=== PATIENT | male | born 1995 ===

== ENCOUNTER 2018-03-16 17:13 | Emergency (ER) | payer SELFPAY ==
[~2018-03-16] VITALS: Ht 170.2 cm; Wt 80.0 kg
[2018-03-16 17:20] VITALS: BP 119/77; PULSE 73; RESP 16; TEMP 98.5; O2SAT 98
[2018-03-16] MEDS ORDERED: KETOROLAC TROMETHAMINE 60 MG/2 ML (IM) VIAL IM ONE (18:30)
[2018-03-16] MEDS ORDERED: ORPHENADRINE INJ 60 MG/2 ML AMP IM ONE (18:30)
[2018-03-16] MEDS ORDERED: IBUP1TAB7 PO (18:37)
[2018-03-16] MEDS ORDERED: CYCL10TA PO (18:37)
--- NOTE | 2018-03-16 18:37 | PD ---
HPI Chief Complaint: Pain: Acute or Chronic Time Seen by Provider: 18:02 Travel History International Travel<30 days: No Contact w/Intl Traveler<30days: No Traveled to known affect area: No History of Present Illness HPI 22-year-old male presents to emergency department with 2 complaints. His first complaint is waking up with neck pain and back pain this morning. Denies injuries. 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 Denies encopresis, incontinence, saddle anesthesias. Denies IV drug use or cancer. Denies fever, vomiting. His second complaint is a sore throat that he woke up with this morning. Says it hurts to swallow. Denies lump in throat, difficulty swallowing, unusual drooling. Denies nasal congestion, cough, ear pain. Again denies fever and vomiting. Has been taking ibuprofen for symptom management with some relief. Rates pain 9/10. Neck pain and back pain is aggravated when he turns his neck to the left and right. Throat pain is aggravated with swallowing. Ibuprofen provides some relief. No primary care provider. No known allergies. History of asthma and glaucoma. Has no other medical complaints. No other modifying factors or associated signs and symptoms. PFSH Past Medical History Asthma: Yes Glaucoma: Yes Tetanus Vaccination: Unknown Influenza Vaccination: No Past Surgical History Surgical History: No Previous Surgery Social History Alcohol Use: Yes (ONCE A WEEK SOCIALLY) Tobacco Use: No Substance Use: No Allergies-Medications (Allergen,Severity, Reaction): Coded Allergies: No Known Allergies (Unverified , 03/16/18) Reported Meds & Prescriptions Reported Meds & Active Scripts Active Ibuprofen 800 Mg Tab 800 Mg PO Q6HR PRN Flexeril (Cyclobenzaprine HCl) 10 Mg Tab 10 Mg PO TID PRN Review of Systems Except as stated in HPI: all other systems reviewed are Neg Physical Exam Narrative GENERAL: Well-nourished, well-developed male patient, in no acute distress; afebrile, nontoxic-appearing SKIN: Warm and dry. No rash. HEAD: Atraumatic. Normocephalic. EYES: Pupils equal and round. No scleral icterus. No injection or drainage. ENT: Mucosa pink and moist. No erythema or exudates. No uvular edema. No uvular , palatal, or tonsillar deviation. Airway patent. EARS: Bilateral pinnae and external canals appear within normal limits. Bilateral tympanic membranes without erythema, dullness or perforation. NECK: No midline tenderness on palpation of the cervical spine. Active rotation greater than 45 to the left and right. Reproducible tenderness to bilateral musculature of the neck. Trachea midline. No lymphadenopathy. CARDIOVASCULAR: Regular rate RESPIRATORY: No accessory muscle use. GASTROINTESTINAL: Flat. BACK: No midline tenderness to palpation of the thoracic spine. Reproducible tenderness to bilateral trapezius musculature of the upper back. MUSCULOSKELETAL: No obvious deformities. No clubbing. No cyanosis. No edema. NEUROLOGICAL: Awake and alert. Oriented 3. No obvious cranial nerve deficits. Motor grossly within normal limits. Normal speech. Moves all extremities. 5/5 strength to all extremities. PSYCHIATRIC: Appropriate mood and affect; insight and judgment normal. Data Data Last Documented VS Vital Signs Date Time Temp Pulse Resp B/P (MAP) Pulse Ox O2 Delivery O2 Flow Rate FiO2 03/16/18 17:20 98.5 73 16 119/77 (91) 98 Orders Orders Ketorolac Inj (Toradol Inj) (03/16/18 18:30) Orphenadrine Inj (Norflex Inj) (03/16/18 18:30) Group A Rapid Strep Screen (03/16/18 18:19) Strep Culture (Group A) (03/16/18 18:30) MDM Medical Decision Making Medical Screen Exam Complete: Yes Emergency Medical Condition: Yes Medical Record Reviewed: Yes Differential Diagnosis Muscle spasm of back, trapezius muscle strain, sore throat, viral illness Narrative Course 22-year-old male with suspected muscle strain of both trapezius muscles of the neck and upper back and a sore throat. Toradol and Norflex administered in the ER. Rapid strep ordered. 193: Rapid strep negative. On reexamination patient says he is feeling much better and his neck and back are not hurting so much and he can move his neck much easier. Ibuprofen and Flexeril prescribed for home. Work release provided. Instructed patient to follow up with primary care provider. Patient verbalizes understanding and agreement with treatment plan. Patient is medically cleared and stable for discharge. Discussed reasons to return to the emergency department. Patient agrees with treatment plan. The patients vital signs are stable and the patient is stable for outpatient follow-up and treatment. Patient discharged home, stable and in no acute distress. Diagnosis Primary Impression: Strain of cervical portion of both trapezius muscles Additional Impression: Strain of trapezius muscle Qualified Codes: S46.819A - Strain of other muscles, fascia and tendons at shoulder and upper arm level, unspecified arm, initial encounter Referrals: [facility] Primary Care Physician Patient Instructions: General Instructions, Muscle Spasm (ED), Muscle Strain ( ED) Departure Forms: Tests/Procedures, Work Release Enter return to work date: Mar 18, 2018 Additional Instructions: Tylenol or ibuprofen as directed and as needed for pain Robaxin as prescribed and as needed for muscle spasms Heating pad and/or ice to affected area to reduce pain Avoid aggravating activities; increase activity as tolerated Follow-up with primary care provider Return to emergency department immediately with worsening of symptoms Med/Other Pt SpecificInfo: Prescription(s) given Scripts Ibuprofen (Ibuprofen) 800 Mg Tab 800 MG PO Q6HR Y for PAIN, #30 TAB 0 Refills Prov: Rachel Guerrero 03/16/18 Cyclobenzaprine (Flexeril) 10 Mg Tab 10 MG PO TID Y for MUSCLE SPASM, #20 TAB 0 Refills Prov: Rachel Guerrero 03/16/18 Disposition: 01 DISCHARGE HOME Condition: Stable Rachel Guerrero Mar 16, 2018 18:37
== END 2018-03-16 20:01 | disposition home or self-care (01) ==
LOC: NEPK 17:13
DX: S16.1XXA Strain of muscle, fascia and tendon at neck level, initial encounter (principal); S46.812A Strain of other muscles, fascia and tendons at shoulder and upper arm level, left arm, initial encounter; S46.811A Strain of other muscles, fascia and tendons at shoulder and upper arm level, right arm, initial encounter; R07.0 Pain in throat; H40.9 Unspecified glaucoma; Z87.09 Personal history of other diseases of the respiratory system; X50.0XXA Overexertion from strenuous movement or load, initial encounter; Y99.0 Civilian activity done for income or pay
CPT/HCPCS: 87081; 87880; 96372; 99283; J1885; J2360